=== PATIENT | male | born 1950 | race Caucasian/White ===

== ENCOUNTER 2018-07-04 08:04 | Day surgery (SDC) | payer MEDICARE ==
[~2018-07-04] VITALS: Ht 165.1 cm; Wt 87.7 kg
[~2018-07-04 08:04] MED LIST: 0.9% SODIUM CHLORIDE 10 ML SYRINGE IVP PRN; ASPI-1182 PO; ATOR40TA28 PO; CARV3 PO; FISH1CAP27 PO; FOLI1 PO; ISOS30TA6 PO; METOPROLOL TARTRATE 50 MG TABLET PO PRN; NITR.4 SL; SACU1TAB7 PO; WARF3TAB29 PO
[2018-07-04 08:47] LABS: ANION GAP 8 mmol/L (8-16); CALCIUM, TOTAL 8.8 mg/dL (8.8-10.5); CARBON DIOXIDE 28 mmol/L (22-29); CHLORIDE 105 mmol/L (98-107); CREATININE 1.13 mg/dL (0.60-1.30); GLOMERULAR FILTR. RATE CALC > 60 mL/min (>60); GLUCOSE,RANDOM 105 mg/dL (70-110); POTASSIUM 4.3 mmol/L (3.5-5.1); SODIUM SERUM 141 mmol/L (136-145); UREA NITROGEN, BLOOD 17 mg/dL (7-18)
[2018-07-04] MEDS ORDERED: VITAD1000 PO (08:52)
[2018-07-04] MEDS ORDERED: FOLI1 PO (08:52)
[2018-07-04] MEDS ORDERED: NITROGLYCERIN 400 MCG/SUBLINGUAL SPRAY 4.9 GM BOTTLE SL ONE ×2 (10:32→10:51)
[2018-07-04] MEDS ORDERED: METOPROLOL TARTRATE 5 MG/5 ML VIAL ONE (10:33)
[2018-07-04] MEDS ORDERED: SODIUM CHLORIDE 0.9% 100 ML ONE (10:33)
[2018-07-04] MEDS ORDERED: IOVERSOL 350 MG/ML 150 ML VIAL ONE (10:33)
[2018-07-04] MEDS ORDERED: METOPROLOL TARTRATE 5 MG/5 ML VIAL IVP ONE (10:45)
== END 2018-07-04 11:25 | disposition home or self-care (01) ==
LOC: SURGERY 08:04 → EDSTATUS 10:00 → SURGERY 11:25
PROVIDERS: ATTEND Internal Medicine Cardiovascular Disease
DX: I25.118 Atherosclerotic heart disease of native coronary artery with other forms of angina pectoris (principal); I25.2 Old myocardial infarction; E78.5 Hyperlipidemia, unspecified; I50.9 Heart failure, unspecified; I45.6 Pre-excitation syndrome; F17.210 Nicotine dependence, cigarettes, uncomplicated; Z95.5 Presence of coronary angioplasty implant and graft; Z95.0 Presence of cardiac pacemaker; Z79.82 Long term (current) use of aspirin; Z79.01 Long term (current) use of anticoagulants; Z79.899 Other long term (current) drug therapy
CPT/HCPCS: 36415; 71045; 75574; 80048; 93005; J3490; J7050; Q9967